=== PATIENT | female | born 1990 | race Caucasian/White ===

== ENCOUNTER 2019-07-14 11:29 | Inpatient (IN) ==
--- NOTE | 2019-07-14 11:57 | Emergency Department Note ---
[facility] [place] Clinical Impression: Shortness of breath Disposition: Still a Patient Condition on Discharge: Fair Referrals: Provider,Referral, [Primary Care Provider] - Time of Disposition: 12:06 Medical Decision Making - Des Inquiry Pt receiving controlled substance: No Des was queried for this patient: No Vital Signs: 07/14/19 11:48 Temperature 98.7 F Temperature Source Oral Pulse Rate [Right Brachial] 138 H Respiratory Rate 36 H Blood Pressure [Right Arm] 135/83 Blood Pressure Mean [Right Arm] 100 Blood Pressure Source [Right Arm] Automatic Cuff Blood Pressure Position [Right Arm] Sitting 02 Sat by Pulse Oximetry 88 L Oxygen Delivery Method Room Air - Reevaluation(s) Time: 12:02 Reevaluation #1: After walking from waiting room to exam room patient become pale, sweaty and breathing rapidly Patient reports "feel like she cant breath" Patient initial SPO2 was 85% and slightly improved to 88% after sitting. Patient reports that she is unable to walk, eat or talk much due to feeling out of breath, Denies COPD Patient to be transferred to ED for further evaluation and treatment, Patient agreed for transfer, called ED spoke with Raquel RN and advised of patient complaints and findings and patient transferred to ED room 7 for further evaluation and treatment Patient transferred to ED room 7 via wheel chair [facility] [place] - General Stated complaint: SOA fever Time Seen by Provider: 07/14/19 11:54 Mode of Arrival: Family Vehicle Source of Information: Patient Limitations: No Limitations Description of Symptoms (Recalled from Triage Doc. by RN): C/O SOB AND COUGH. WAS SEE IN THIS [facility] ON 07/11/19 AND STARTED ON MEDS BUT GETTING WORSE HEENT Symptoms (Recalled from RN notes): Yes Resp Symptoms (Recalled from RN notes): Yes Skin Symptoms (Recalled from RN notes): No MS Symptoms (Recalled from RN notes): No Functional Status (Recalled from RN notes): N/A - History of Present Illness Provider Complaint: Patient states that she was seen on Saturday and dx with bronchitis and started on zpack and steriods and given an inhaler State that she has continued to get worse States that she "feels like she cant breath" States that when she gets up and moves around, talks or does anything she gets sweaty and feels like she cant breath. States that she feels like when she tries to take a deep a breath she starts coughing and her breathing gets worse States that her chest and back feel sore from coughing. States that last night she rolled over and felt like she couldnt breath and this morning she felt worse and feels like she cant get a good breath in so she came back to get checked - Related Data Home Medications Medication Instructions Recorded Confirmed Norethindrone-E.estradiol-Iron 1 tab PO DAILY 07/11/19 07/11/19 [Junel Fe 1 mg-20 Mcg Tablet] Previous Rx's Medication Instructions Recorded Albuterol Sulfate [Albuterol HFA 1 - 2 puffs IH Q4-6H PRN #1 inh 07/11/19 Inhaler] Azithromycin [Zithromax 250mg 250 mg PO DIRECTED #6 tab 07/11/19 tab] predniSONE [Prednisone 20mg 20 mg PO BID #10 tab 07/11/19 Tab] Allergies Allergy/AdvReac Type Severity Reaction Status Date / Time No Known Allergies Allergy Verified 07/11/19 20:43 - Worker's Comp Is this a Worker's Comp case?: No [facility] History - Hepatitis A Screen Drug use history?: No High risk sexual behaviors?: No History of sexually transmitted infection?: No Currently employed?: No Childcare worker?: No Do you have indoor plumbing?: Yes Do you have electricity?: Yes Attestation statement:: This patient has been screened for Hepatitis A risk factors. I have reviewed the patient's past medical history: Yes - Social History Alcohol Intake: never Occupational Status: other ROS Obtained: Yes All systems reviewed & no additional complaints, Yes Systems reviewed as appropriate & no additional complaints - Constitutional Constitutional: Reports fatigue, Reports lethargy - Cardiovascular Cardiovascular: Reports dyspnea, Reports dyspnea on exertion, Reports rapid heart rate - Respiratory Respiratory: Yes cough, Yes dyspnea, Yes dyspnea on exertion, Yes pain on inspiration, Yes pain with cough Comments: Report pain with deep inspiration and pain with cough, reports worsening of dy spnea since Saturday with periods of feeling sweating all over, Physical Exam - General General appearance: alert, other (Patient alert, breathing rapidly, pale and sweaty) - Respiratory Respiratory exam: Present: respiratory distress, other (Patient breathing rapidly, reports feels like she can't catch her breath after walking to exam room) - Cardiovascular Cardiovascular exam: Present: tachycardia - Neurological Exam Neurological exam: Present: alert, oriented X3
--- NOTE | 2019-07-14 12:08 | Emergency Department Note ---
ED Disposition Clinical Impression: Community acquired pneumonia Qualifiers: Laterality: unspecified laterality Qualified Code(s): J18.9 - Pneumonia, unspecified organism Respiratory failure with hypoxia Qualifiers: Chronicity: acute Qualified Code(s): J96.01 - Acute respiratory failure with hypoxia Disposition: Admitted As Inpatient Condition on Discharge: Serious Referrals: Provider,Referral, [Primary Care Provider] - - Critical Care Critical Care Time: Yes Attestation: On 07/14/19, the high probability of a clinically significant, sudden or life threatening deterioration of the following system(s) required my full and direct attention, intervention and personal management. The time I documented below is in addition to time spent performing reported procedures but includes the following listed in this critical care notation. Total Critical Care Time: 30 Vital system(s) involved:: Respiratory Failure My critical care processes included: Assessment & monitoring of V/S, Initial and Re-exams, Data Review/Interpretation, Coordinating Care, Medication Orders and management, Documentation Medical Decision Making - Des Inquiry Pt receiving controlled substance: No Vital Signs: 07/14/19 11:48 07/14/19 12:00 07/14/19 12:33 Temperature 98.7 F 99.6 F Temperature Source Oral Oral Pulse Rate [Right Brachial] 138 H 119 H 120 H Respiratory Rate 36 H 35 H Blood Pressure [Right Arm] 135/83 123/74 132/78 Blood Pressure Mean [Right Arm] 100 90 96 Blood Pressure Source [Right Arm] Automatic Cuff Automatic Cuff Blood Pressure Position [Right Arm] Sitting Sitting 02 Sat by Pulse Oximetry 88 L 85 L 90 L Oxygen Delivery Method Room Air Room Air Nasal Cannula Oxygen Flow Rate (LPM) 2 - Lab Data Lab Results 07/14/19 12:09: WBC 5.1, RBC 4.87, Hgb 13.5, Hct 41.6, MCV 85.5, MCH 27.7, MCHC 32.4, RDW 13.8, Plt Count 286, MPV 7.8, Neut % (Auto) 80.9 H, Lymph % (Auto) 14.6, [place] % (Auto) 4.2, Eos % (Auto) 0.1, Baso % (Auto) 0.2, Neut # (Auto) 4.1, Lymph # (Auto) 0.8, [place] # (Auto) 0.2, Eos # (Auto) 0.0, Baso # (Auto) 0.0 07/14/19 12:09: Sodium 138, Potassium 4.3, Chloride 106, Carbon Dioxide 22, Anion Gap 14.3, BUN 14, Creatinine 0.60, Estimated Creat Clear 251, Estimated GFR 120, Est GFR ( Amer) 145, Glucose 135 H, Calcium 9.0, Total Bilirubin 0.4, AST 39 H, ALT 26, Alkaline Phosphatase 96, Troponin I < 0.01, NT-Pro-B Natriuret Pep 19.9, Total Protein 8.8 H, Albumin 4.5, Globulin 4.3 H, Albumin/Globulin Ratio 1.0 L 07/14/19 12:09: Lactate 1.0 07/14/19 12:13: Specimen Source R radial, O2 % Room air, ABG pH 7.45, ABG pCO2 30.3 L, ABG pO2 56.1 L, ABG HCO3 20.4 L, ABG Total CO2 21.3 L, ABG O2 Saturation 90, ABG Base Excess -3.7 L, Sahil Test Acceptable Result diagrams: 07/14/19 12:09 07/14/19 12:09 Orders (Tests/Meds): ED MEDICATIONS Generic Name Dose Route Start Last Admin Trade Name Freq PRN Reason Stop Dose Admin Ceftriaxone Sodium 1 gm/ 50 mls @ 100 mls/hr 07/14/19 12:45 07/14/19 12:58 Sodium Chloride IV 07/28/19 12:44 100 mls/hr Q24H JEY Administration Protocol Azithromycin 500 mg/ Sodium 250 mls @ 250 mls/hr 07/14/19 12:45 Chloride IV 07/28/19 12:44 Q24H JEY Protocol Discontinued Medications Generic Name Dose Route Start Last Admin Trade Name Freq PRN Reason Stop Dose Admin Albuterol/Ipratropium 3 ml 07/14/19 12:20 07/14/19 12:20 Duoneb 3ml Neb IH 07/14/19 12:21 3 ml ONCE ONE Administration ORDERS Category Date Time Status Serum [HCG Qualitative, Serum] Stat Lab 07/14/19 12:09 Received Troponin I Q3H Lab 07/14/19 15:15 Ordered Troponin I Q3H Lab 07/14/19 18:15 Ordered Upper Respiratory Panel, PCR Stat Lab 07/14/19 12:20 Received Blood Culture Stat Micro 07/14/19 12:09 Received - Radiology Data #1 Image(s): Chest Image Reviewed: Yes I reviewed the patient's radiology image, Yes I discussed the image results w/the radiologist Low lung volumes. Bilateral lower lobe pneumonia. - Physician Consults Physician Consulted: Bonifacio Time: 13:00 Reason -: Admission Comment/Response: Agrees to admit the patient to the hospital. We discussed the patient's clinical information, including history, exam, laboratory and radiology results and ED course. Per hospital procedure, I will write temporary bridge inpatient orders on the patient. Specific orders requested by the admitting physician: Rocephin and Levaquin, since she failed outpatient Zithromax. General Adult HPI - General Stated complaint: SOA fever Time Seen by Provider: 07/14/19 11:54 Mode of Arrival: Family Vehicle Source of Information: Patient Limitations: No Limitations Description of Symptoms (Recalled from ER Triage Doc. by RN): C/O SOB AND COUGH. WAS SEE IN THIS [facility] ON 07/11/19 AND STARTED ON MEDS BUT GETTING WORSE - History of Present Illness HPI narrative: States she began to get ill on Saturday 1 week ago. She had body aches and chills, cough. Low-grade fever. States that she thought she had the flu. Seen at the urgent treatment center here on 07/11/2019 and diagnosed with bronchitis. Started on Z-Ryan, prednisone, inhaler at that time. [place] some improvement and was able to go back to work, but now is worsening again with shortness of breath, dyspnea on exertion. Has coughing paroxysms. Coughed up clear phlegm this morning, cough is largely nonproductive. Has chest pain only when she coughs. Diarrhea, but no vomiting. Nausea this morning. Has a history of childhood asthma, but no problems since third grade. Non- smoker. - Related Data Home Medications Medication Instructions Recorded Confirmed Norethindrone-E.estradiol-Iron 1 tab PO DAILY 07/11/19 07/14/19 [Junel Fe 1 mg-20 Mcg Tablet] Azithromycin [Zithromax 250mg 250 mg PO DIRECTED 07/14/19 07/14/19 tab] predniSONE [Prednisone 20mg 20 mg PO BID 07/14/19 07/14/19 Tab] Previous Rx's Medication Instructions Recorded Albuterol Sulfate [Albuterol HFA 1 - 2 puffs IH Q4-6H PRN #1 inh 07/11/19 Inhaler] Allergies Allergy/AdvReac Type Severity Reaction Status Date / Time No Known Allergies Allergy Verified 07/11/19 20:43 [facility] History - Hepatitis A Screen Drug use history?: No High risk sexual behaviors?: No History of sexually transmitted infection?: No Currently employed?: No Childcare worker?: No Do you have indoor plumbing?: Yes Do you have electricity?: Yes Attestation statement:: This patient has been screened for Hepatitis A risk factors. I have reviewed the patient's past medical history: Yes - Social History Alcohol Intake: never Occupational Status: other ROS Obtained: Yes All systems reviewed & no additional complaints - Constitutional Constitutional: Reports body ache, Reports chills, Reports fever(s) - Respiratory Respiratory: Yes cough, Yes dyspnea, Yes dyspnea on exertion, Yes pain with cough - Gastrointestinal Gastrointestingal: Reports: diarrhea, nausea. Denies: abdominal pain, vomiting Physical Exam - General General appearance: alert Comment: Tachypneic, mildly labored respirations - Head Head exam: atraumatic, normocephalic - Eye Eye exam: Present: normal appearance, EOMI - ENT ENT exam: Present: mucous membranes moist - Neck Neck exam: Present: normal inspection, trachea midline - Chest Chest inspection: Present: normal inspection, symmetric chest wall rise - Respiratory Respiratory exam: Present: other (Crackles bilaterally, decreased breath sounds right base). Absent: wheezes - Cardiovascular Cardiovascular exam: Present: normal rhythm, tachycardia, normal heart sounds - Abdominal Exam Abdominal exam: Present: soft, normal bowel sounds. Absent: distention, tenderness - Extremities Exam Extremities exam: Present: normal inspection - Neurological Exam Neurological exam: Present: alert, oriented X3 - Psychiatric Psychiatric exam: Present: normal affect, normal mood - Skin Skin exam: Present: warm, dry
[2019-07-14 12:19] LABS: ABG Base Excess -3.7 mmol/L (-2.4-2.3); ABG HCO3 20.4 mmhg (22.0-26.0); ABG Oxygen Saturation 90 % (90-100); ABG PCO2 30.3 mmhg (35.0-45.0); ABG PH 7.45 mmol/L (7.35-7.45); ABG PO2 56.1 mmhg (80-100); ABG TCO2 21.3 mmhg (23-27)
[2019-07-14 12:20] LABS: Allen's Test ACCEPTABLE; Oxygen ROOM AIR %
[2019-07-14 12:21] LABS: Basophils % 0.2 % (0.1-2.0); Eosinophils % 0.1 % (0.1-12.0); Hematocrit 41.6 % (37.0-47.0); Hemoglobin 13.5 g/dL (12.2-16.2); Lymphocytes # 0.8 K/mm3 (0.7-4.5); Lymphocytes % 14.6 % (10-50); Mean Corpuscular HGB Conc 32.4 g/dL (31.8-35.4); Mean Corpuscular Volume 85.5 fl (81-99); Mean Platelet Volume 7.8 fl (7.4-10.4); Monocytes # 0.2 K/mm3 (0.1-1.0); Monocytes % 4.2 % (1.7-9.3); Neutrophils # 4.1 K/mm3 (1.8-7.8); Neutrophils % 80.9 % (37.0-80.0); Platelet Count 286 K/mm3 (142-424); Red Blood Count 4.87 M/mm3 (4.20-5.40); Red Cell Distribution Width 13.8 % (11.5-17.5); White Blood Count 5.1 K/mm3 (4.8-10.8)
[2019-07-14 12:23] LABS: Coronavirus 229E Not Detected (NotDetected); Coronavirus NL63 Not Detected (NotDetected); Coronavirus OC43 Not Detected (NotDetected); Coronovirus HKU1,PCR Not Detected (NotDetected)
[2019-07-14 12:32] LABS: Alanine Aminotransferase 26 U/L (12-78); Albumin Level 4.5 g/dl (3.5-5.0); Alkaline Phosphatase 96 U/L (38-126); Anion Gap 14.3 mEq/L (5-15); Aspartate Amino Transferase 39 U/L (14-36); Bilirubin,Total 0.4 mg/dl (0.2-1.3); Blood Urea Nitrogen 14 mg/dl (7-17); Carbon Dioxide 22 mmol/L (22.0-30.0); Chloride 106 mmol/L (98-107); Globulin 4.3 g/dL (1.3-3.2); Glucose 135 mg/dl (74-100); Sodium 138 mmol/L (136-145); Total Protein,Serum 8.8 g/dl (6.3-8.2)
--- NOTE | 2019-07-14 14:14 | Pharmacy Consult Notes ---
[facility] Pharmacy VTE Monitoring - Patient Demographics Admission date: 07/14/19 Report Date: 07/14/19 Time: 14:14 Allergies/Adverse Reactions: Patient Allergies No Known Allergies Allergy (Verified 07/11/19 20:43) Height: 1.7 m Weight: 113 kg Patient Problems: Current Active Problems Community acquired pneumonia (Acute) Respiratory failure with hypoxia (Acute) - VTE Risk Labs: VTE Related Lab Results Hgb 13.5 g/dL (12.2-16.2) 07/14/19 12:09 Hct 41.6 % (37.0-47.0) 07/14/19 12:09 Plt Count 286 K/mm3 (142-424) 07/14/19 12:09 BUN 14 mg/dl (7-17) 07/14/19 12:09 Creatinine 0.60 mg/dl (0.52-1.04) 07/14/19 12:09 Estimated Creat Clear 251 mL/min (50-200) 07/14/19 12:09 - Prophylaxis VTE Prophylaxis Ordered?: Yes Types of VTE Prophylaxis: TEDS Knee High Location of Applied Device: Bilateral Lower Extremeties
--- NOTE | 2019-07-14 17:37 | History & Physical Report ---
*Admission Date: 07/14/19 <AinsleyDavida Kate 07/14/19 18:02> *Chief complaint: Shortness of breath <Davida Schmitz 07/14/19 18:02> *History of present illness: Lm is a 28-year-old female with a history of childhood asthma who became sick last week with flulike symptoms To include body aches and chills, cough as well as low-grade fever. At this time she thought she had the flu. She presented to urgent treatment center initially on 07/11/2019 and was treated for bronchitis with Zithromax, prednisone, and inhaler. She got some improvement and was able to go back to work but then again began with shortness of breath and increasing nonproductive cough. So described chest pain with deep inspiration and with the coughing. She developed diarrhea but had no vomiting. She again presented to urgent treatment center and was sent to the ER for evaluation. CTA of the lungs revealed bilateral pneumonia but no PE. Laboratory data: Respiratory panel was negative; white blood cell count was 5100; blood chemistries showed normal electrolytes and renal function. Troponin I was negative; lactic acid was at 1. She was given an albuterol neb treatment. ABG showed a pH of 7.45, PCO2 of 30.3, bicarb of 20.4 and a PO2 of 56.1. She was then admitted for further evaluation and treatment with Levaquin and Zithromax along with neb treatments. At the time of this exam patient is dyspneic with talking. She continues to have chest pain with deep inspiration. O2 sats are in the 90s on oxygen at 3 L/min. <Davida Schmitz 07/14/19 18:02> [facility] History Medical History: Denies:: Asthma, Chronic Obstructive Pulmonary Disease (COPD), Coronary Artery Disease, Diabetes Mellitus Type 2, Gastroesophageal Reflux Disease(GERD), Home Oxygen, Hypertension, Peripheral Vascular Disease <Davida Schmitz 07/14/19 18:02> *Have you ever received a pneumonia vaccine?: No <Davida Schmitz 07/14/19 18:02> *Have you received a flu vaccine this season?: No <Davida Schmitz 07/14/19 18:02> Other Medical History: Denies: Anemia, Arthritis <Davida Schmitz 20 18:02> Other Surgeries: Yes: No Previous Surgery <AinsleyDavida - 07/14/19 18:02> - *Social History Educational Level: Completed High School <Davida Schmitz 07/14/19 18:02> Smoking Status: Never smoker <SchmitzDavida escobar 07/14/19 18:02> Alcohol Intake: never <Davida Schmitz 07/14/19 18:02> *Occupational Status:: employed <Davida Schmitz 07/14/19 18:02> Housing: house <SchmitzDavida escobar 07/14/19 18:02> Household Members: spouse <Davida Schmitz 07/14/19 18:02> *Travel in the last 8 weeks: None <Davida Schmitz 07/14/19 18:02> Family Hx:: Bleeding Disorder, Diabetes, Hyperlipidemia, Hypertension, Mental illness, Other <Davida Schmitz 07/14/19 18:02> Comment: Oral control pills <Davida Schmitz 07/14/19 18:02> Review of Systems - Constitutional Reports fatigue, Reports fever(s), Reports lack of energy <Davida Schmitz 07/14/19 18:02> - Eyes Denies change in vision <Davida Schmitz 07/14/19 18:02> - ENT Denies difficulty swallowing, Denies ear pain, Denies nasal congestion, Denies sore throat <Davida Schmitz 07/14/19 18:02> - *Cardiovascular Reports chest pain (On inspiration), Reports shortness of breath <Davida Schmitz 07/14/19 18:02> - *Respiratory Reports cough, Reports shortness of breath, Denies coughing up blood <Davida Schmitz 07/14/19 18:02> - *Gastrointestinal Reports heartburn, Reports loose stools, Denies abdominal pain, Denies change in bowel habits, Denies constipation, Denies heartburn, Denies vomiting blood <Davida Schmitz 07/14/19 18:02> - *Genitourinary Denies abnormal periods, Denies difficulty urinating, Denies blood in urine <Davida Schmitz 07/14/19 18:02> - *Musculoskeletal Reports muscle weakness (Since she has been sick) <Davida Schmitz - 07/14/19 18:02> - *Neurologic Reports headache(s), Denies confusion, Denies dizziness, Denies lack of coordination, Denies seizure-like activity <Davida Schmitz - 07/14/19 18:02> Meds Home Medications Medication Instructions Recorded Confirmed Type Norethindrone-E.estradiol-Iron 1 tab PO DAILY 07/11/19 07/14/19 History [Junel Fe 1 mg-20 Mcg Tablet] Azithromycin [Zithromax 250mg 250 mg PO DIRECTED 07/14/19 07/14/19 History tab] predniSONE [Prednisone 20mg 20 mg PO BID 07/14/19 07/14/19 History Tab] <Chad Valdovinos - 07/14/19 18:35> Allergies Allergy/AdvReac Type Severity Reaction Status Date / Time No Known Allergies Allergy Verified 07/11/19 20:43 <Chad Valdovinos - 07/14/19 18:35> Exam Vital signs and Labs for Last 24 Hours: Temp Pulse Resp BP Pulse Ox 99.7 F H 115 H 48 H 125/80 90 L 07/14/19 17:00 07/14/19 17:00 07/14/19 17:00 07/14/19 17:00 07/14/19 17:00 Laboratory Results - last 24 hr 07/14/19 12:09: WBC 5.1, RBC 4.87, Hgb 13.5, Hct 41.6, MCV 85.5, MCH 27.7, MCHC 32.4, RDW 13.8, Plt Count 286, MPV 7.8, Neut % (Auto) 80.9 H, Lymph % (Auto) 14.6, [place] % (Auto) 4.2, Eos % (Auto) 0.1, Baso % (Auto) 0.2, Neut # (Auto) 4.1, Lymph # (Auto) 0.8, [place] # (Auto) 0.2, Eos # (Auto) 0.0, Baso # (Auto) 0.0 07/14/19 12:09: Sodium 138, Potassium 4.3, Chloride 106, Carbon Dioxide 22, Anion Gap 14.3, BUN 14, Creatinine 0.60, Estimated Creat Clear 251, Estimated GFR 120, Est GFR ( Amer) 145, Glucose 135 H, Calcium 9.0, Total Bilirubin 0.4, AST 39 H, ALT 26, Alkaline Phosphatase 96, Troponin I < 0.01, NT-Pro-B Natriuret Pep 19.9, Total Protein 8.8 H, Albumin 4.5, Globulin 4.3 H, Albumin/Globulin Ratio 1.0 L 07/14/19 12:09: Lactate 1.0 07/14/19 12:09: Serum HCG, Qual Negative 07/14/19 12:09: Mycoplasma pneumon IgM Non-reactive 07/14/19 12:13: Specimen Source R radial, O2 % Room air, ABG pH 7.45, ABG pCO2 30.3 L, ABG pO2 56.1 L, ABG HCO3 20.4 L, ABG Total CO2 21.3 L, ABG O2 Saturation 90, ABG Base Excess -3.7 L, Sahil Test Acceptable 07/14/19 12:20: Chlamy pneumoniae PCR Not detected, Adenovirus (PCR) Not detected, B. pertussis DNA (PCR) Not detected, Coronavirus OC43 (PCR) Not detected, Coronavirus HKU1 (PCR) Not detected, Coronavirus 229E (PCR) Not detected, Coronavirus NL63 (PCR) Not detected, Human Metapneumovir PCR Not detected, Influenza A (H1) PCR Not detected, Influ A (H1N1/09) PCR Not detected, Influenza A (H3) PCR Not detected, Influenza Type A (PCR) Not detected, Influenza Type B (PCR) Not detected, M. pneumoniae (PCR) Not detected, Parainfluenza 1 (PCR) Not detected, Parainfluenza 2 (PCR) Not detected, Parainfluenza 3 (PCR) Not detected, Parainfluenza 4 (PCR) Not detected, RSV (PCR) Not detected, Entero/Rhino (PCR) Not detected <Chad Valdovinos - 07/14/19 18:35> Temp Pulse Resp BP Pulse Ox 99.6 F 138 H 48 H 138/78 91 L 07/14/19 16:00 07/14/19 16:00 07/14/19 16:00 07/14/19 16:00 07/14/19 16:00 Laboratory Results - last 24 hr 07/14/19 12:09: WBC 5.1, RBC 4.87, Hgb 13.5, Hct 41.6, MCV 85.5, MCH 27.7, MCHC 32.4, RDW 13.8, Plt Count 286, MPV 7.8, Neut % (Auto) 80.9 H, Lymph % (Auto) 14.6, [place] % (Auto) 4.2, Eos % (Auto) 0.1, Baso % (Auto) 0.2, Neut # (Auto) 4.1, Lymph # (Auto) 0.8, [place] # (Auto) 0.2, Eos # (Auto) 0.0, Baso # (Auto) 0.0 07/14/19 12:09: Sodium 138, Potassium 4.3, Chloride 106, Carbon Dioxide 22, Anion Gap 14.3, BUN 14, Creatinine 0.60, Estimated Creat Clear 251, Estimated GFR 120, Est GFR ( Amer) 145, Glucose 135 H, Calcium 9.0, Total Bilirubin 0.4, AST 39 H, ALT 26, Alkaline Phosphatase 96, Troponin I < 0.01, NT-Pro-B Natriuret Pep 19.9, Total Protein 8.8 H, Albumin 4.5, Globulin 4.3 H, Albumin/Globulin Ratio 1.0 L 07/14/19 12:09: Lactate 1.0 07/14/19 12:09: Serum HCG, Qual Negative 07/14/19 12:13: Specimen Source R radial, O2 % Room air, ABG pH 7.45, ABG pCO2 30.3 L, ABG pO2 56.1 L, ABG HCO3 20.4 L, ABG Total CO2 21.3 L, ABG O2 Saturation 90, ABG Base Excess -3.7 L, Sahil Test Acceptable 07/14/19 12:20: Chlamy pneumoniae PCR Not detected, Adenovirus (PCR) Not detected, B. pertussis DNA (PCR) Not detected, Coronavirus OC43 (PCR) Not detected, Coronavirus HKU1 (PCR) Not detected, Coronavirus 229E (PCR) Not detected, Coronavirus NL63 (PCR) Not detected, Human Metapneumovir PCR Not detected, Influenza A (H1) PCR Not detected, Influ A (H1N1/09) PCR Not detected, Influenza A (H3) PCR Not detected, Influenza Type A (PCR) Not detected, Influenza Type B (PCR) Not detected, M. pneumoniae (PCR) Not detected, Parainfluenza 1 (PCR) Not detected, Parainfluenza 2 (PCR) Not detected, Pa rainfluenza 3 (PCR) Not detected, Parainfluenza 4 (PCR) Not detected, RSV (PCR) Not detected, Entero/Rhino (PCR) Not detected <Davida Schmitz - 07/14/19 18:02> I & O for Last 24 hours: Intake & Output 07/11/19 07/12/19 07/13/19 07/14/19 23:59 23:59 23:59 23:59 Intake Total 1040 / 1040 Balance 1040 / 1040 Weight 244 lb <Chad Valdovinos - 07/14/19 18:35> Intake & Output 07/12/19 07/13/19 07/14/19 07/15/19 11:59 11:59 11:59 11:59 Intake Total 560 / 560 Balance 560 / 560 Weight 250 lb 244 lb <Davida Schmitz - 07/14/19 18:02> Radiology Reports for the Last 24 Hours: 07/14/2019 chest x-ray IMPRESSION: Low lung volumes with bibasilar airspace disease 07/14/2019 CT of the lungs IMPRESSION: The low lung volumes with bilateral lower lobe consolidation/volume loss with atelectatic changes in the mid lower lung zones with scattered ground-glass opacities in the upper lobes mostly central consistent with bilateral pneumonia with lung volume loss/atelectasis. <Davida Schmitz - 07/14/19 18:02> - Constitutional Comments: Dyspneic with talking <Davida Schmitz - 07/14/19 18:02> - *Routine HEENT Exam Head: Present: normocephalic, atraumatic <Davida Schmitz 07/14/19 18:02> Eye: Present: PERRL. Absent: conjunctival icterus, scleral injection <Davida Schmitz 07/14/19 18:02> ENT: Present: mucous membranes moist, oropharynx clear <Davida Schmitz 07/14/19 18:02> - *Routine Neck Exam Present: supple. Absent: carotid bruit, lymphadenopathy, thyromegaly <Davida Schmitz 07/14/19 18:02> - *Routine Respiratory Exam Comments: Poor inspiratory effort with diminished breath sounds in the bases. <Davida Schmitz - 07/14/19 18:02> - *Routine Cardiovascular Exam Present: RRR <Davida Schmitz 07/14/19 18:02> - *Routine Abdominal Exam Present: soft, normoactive bowel sounds, obese. Absent: tenderness, distended <Davida Schmitz - 07/14/19 18:02> - *Routine Extremities Exam Absent: edema, calf tenderness <Davida Schmitz - 07/14/19 18:02> - *Routine Neurological Exam Present: alert, oriented X3 <Davida Schmitz 07/14/19 18:02> Assessment and Plan (1) Community acquired pneumonia Current visit: Yes Status: Acute Qualifiers: Qualified Code(s): J18.9 - Pneumonia, unspecified organism Category: Medical Code(s): J18.9 - Pneumonia, unspecified organism (2) Bilateral pneumonia Current visit: Yes Status: Acute Qualifiers: Pneumonia type: due to unspecified organism Lung location: lower lobe of lung Qualified Code(s): J18.9 - Pneumonia, unspecified organism Category: Medical Code(s): J18.9 - Pneumonia, unspecified organism (3) Respiratory failure with hypoxia Current visit: Yes Status: Acute Qualifiers: Chronicity: acute Qualified Code(s): J96.01 - Acute respiratory failure with hypoxia Category: Medical Code(s): J96.91 - Respiratory failure, unspecified with hypoxia (4) Obesity Current visit: Yes Status: Acute Category: Medical Code(s): E66.9 - Obesity, unspecified <Chad Valdovinos - 07/14/19 18:35> (1) Obesity Current visit: Yes Status: Acute Category: Medical Code(s): E66.9 - Obesity, unspecified (2) Community acquired pneumonia Current visit: Yes Status: Acute Qualifiers: Laterality: unspecified laterality Qualified Code(s): J18.9 - Pneumonia, unspecified organism Category: Medical Code(s): J18.9 - Pneumonia, unspecified organism (3) Respiratory failure with hypoxia Current visit: Yes Status: Acute Qualifiers: Chronicity: acute Qualified Code(s): J96.01 - Acute respiratory failure with hypoxia Category: Medical Code(s): J96.91 - Respiratory failure, unspecified with hypoxia <Davida Shcmitz - 07/14/19 17:34> - Assessment and plan all Dx Assessment and Plan for all problems:: Saw patient, agree with above note. Spoke to MD office manager receptionist with [facility] department. They do not recommend any testing for COVID-19 in this patient. Continue current antibiotics and supportive care for pneumonia. <Chad Valdovinos - 07/14/19 18:35> Failed treatment with Zithromax, prednisone, and inhaler. We will continue with current antibiotics of Levaquin and Rocephin. She will receive DuoNeb treatments as well. <Davida Schmitz - 07/14/19 18:02>
[2019-07-15 07:06] LABS: ABG Base Excess -6.9 mmol/L (-2.4-2.3); ABG HCO3 17.9 mmhg (22.0-26.0); ABG Oxygen Saturation 91 % (90-100); ABG PCO2 29.6 mmhg (35.0-45.0); ABG PO2 63.7 mmhg (80-100); ABG TCO2 18.8 mmhg (23-27)
[2019-07-15 07:09] LABS: Oxygen 100% %
[2019-07-15 07:10] LABS: Allen's Test Acceptable
--- NOTE | 2019-07-15 08:48 | Progress Note ---
<Patti Noble - Last Filed: 07/15/19 08:44> Internal Medicine - PN: Subj *Date: 07/15/19 *Time: 08:44 Interval history: Patient is not feeling well this morning. Throughout the night, her sats dropped and she became more short of breath and had to be placed on a venti at 50%. This morning she is now on a nonrebreather and her sats are in the lower 90s. She states she has pain in the middle of her chest with any deep breathing. She still feels very short of breath. Exam Vital signs and Labs for Last 24 Hours: Temp Pulse Resp BP Pulse Ox 100.2 F H 109 H 20 118/68 94 L 07/15/19 06:00 07/15/19 06:17 07/15/19 04:00 07/15/19 04:00 07/15/19 06:17 Laboratory Results - last 24 hr 07/14/19 12:09: WBC 5.1, RBC 4.87, Hgb 13.5, Hct 41.6, MCV 85.5, MCH 27.7, MCHC 32.4, RDW 13.8, Plt Count 286, MPV 7.8, Neut % (Auto) 80.9 H, Lymph % (Auto) 14.6, [place] % (Auto) 4.2, Eos % (Auto) 0.1, Baso % (Auto) 0.2, Neut # (Auto) 4.1, Lymph # (Auto) 0.8, [place] # (Auto) 0.2, Eos # (Auto) 0.0, Baso # (Auto) 0.0 07/14/19 12:09: Sodium 138, Potassium 4.3, Chloride 106, Carbon Dioxide 22, Anion Gap 14.3, BUN 14, Creatinine 0.60, Estimated Creat Clear 251, Estimated GFR 120, Est GFR ( Amer) 145, Glucose 135 H, Calcium 9.0, Total Bilirubin 0.4, AST 39 H, ALT 26, Alkaline Phosphatase 96, Troponin I < 0.01, NT-Pro-B Natriuret Pep 19.9, Total Protein 8.8 H, Albumin 4.5, Globulin 4.3 H, Albumin/Globulin Ratio 1.0 L 07/14/19 12:09: Lactate 1.0 07/14/19 12:09: Serum HCG, Qual Negative 07/14/19 12:09: Mycoplasma pneumon IgM Non-reactive 07/14/19 12:13: Specimen Source R radial, O2 % Room air, ABG pH 7.45, ABG pCO2 30.3 L, ABG pO2 56.1 L, ABG HCO3 20.4 L, ABG Total CO2 21.3 L, ABG O2 Saturation 90, ABG Base Excess -3.7 L, Sahil Test Acceptable 07/14/19 12:20: Chlamy pneumoniae PCR Not detected, Adenovirus (PCR) Not detected, B. pertussis DNA (PCR) Not detected, Coronavirus OC43 (PCR) Not detected, Coronavirus HKU1 (PCR) Not detected, Coronavirus 229E (PCR) Not detected, Coronavirus NL63 (PCR) Not detected, Human Metapneumovir PCR Not detected, Influenza A (H1) PCR Not detected, Influ A (H1N1/09) PCR Not detected, Influenza A (H3) PCR Not detected, Influenza Type A (PCR) Not detected, Influenza Type B (PCR) Not detected, M. pneumoniae (PCR) Not detected, Parainfluenza 1 (PCR) Not detected, Parainfluenza 2 (PCR) Not detected, Parainfluenza 3 (PCR) Not detected, Parainfluenza 4 (PCR) Not detected, RSV (PCR) Not detected, Entero/Rhino (PCR) Not detected 07/15/19 06:41: Specimen Source Right radial, O2 % 100%, ABG pH 7.40, ABG pCO2 2 9.6 L, ABG pO2 63.7 L, ABG HCO3 17.9 L, ABG Total CO2 18.8 L, ABG O2 Saturation 91, ABG Base Excess -6.9 L, Sahil Test Acceptable I & O for Last 24 hours: Intake & Output 07/12/19 07/13/19 07/14/19 07/15/19 11:59 11:59 11:59 11:59 Intake Total 1040 / 1040 Output Total 200 / 200 Balance 840 / 840 Weight 250 lb 243 lb 15.769 oz Radiology Reports for the Last 24 Hours: CXR - No change low lung volumes with bibasilar airspace disease - Constitutional Comments: Does not appear to feel well - *Routine Respiratory Exam Present: diminished air movement (poor respiratory effort) - *Routine Cardiovascular Exam Present: RRR - *Routine Abdominal Exam Present: soft, normoactive bowel sounds. Absent: tenderness - *Routine Extremities Exam Absent: cyanosis, clubbing, edema - *Routine Skin Exam Present: warm. Absent: rash - *Routine Neurological Exam Present: alert, oriented X3 Assessment and Plan (1) Community acquired pneumonia Current visit: Yes Status: Acute Qualifiers: Qualified Code(s): J18.9 - Pneumonia, unspecified organism Category: Medical Code(s): J18.9 - Pneumonia, unspecified organism (2) Bilateral pneumonia Current visit: Yes Status: Acute Qualifiers: Pneumonia type: due to unspecified organism Lung location: lower lobe of lung Qualified Code(s): J18.9 - Pneumonia, unspecified organism Category: Medical Code(s): J18.9 - Pneumonia, unspecified organism (3) Respiratory failure with hypoxia Current visit: Yes Status: Acute Qualifiers: Chronicity: acute Qualified Code(s): J96.01 - Acute respiratory failure with hypoxia Category: Medical Code(s): J96.91 - Respiratory failure, unspecified with hypoxia (4) Obesity Current visit: Yes Status: Acute Category: Medical Code(s): E66.9 - Obesity, unspecified - Assessment and plan all Dx Assessment and Plan for all problems:: We will repeat a PCR respiratory panel today. Dr. Valdovinos will try to contact pulmonology to discuss the case with them. <Chad Valdovinos - Last Filed: 07/15/19 08:53> Internal Medicine - PN: Subj *Date: 07/15/19 *Time: 08:52 Exam Vital signs and Labs for Last 24 Hours: Temp Pulse Resp BP Pulse Ox 100.2 F H 109 H 20 118/68 94 L 07/15/19 06:00 07/15/19 06:17 07/15/19 04:00 07/15/19 04:00 07/15/19 06:17 Laboratory Results - last 24 hr 07/14/19 12:09: WBC 5.1, RBC 4.87, Hgb 13.5, Hct 41.6, MCV 85.5, MCH 27.7, MCHC 32.4, RDW 13.8, Plt Count 286, MPV 7.8, Neut % (Auto) 80.9 H, Lymph % (Auto) 14.6, [place] % (Auto) 4.2, Eos % (Auto) 0.1, Baso % (Auto) 0.2, Neut # (Auto) 4.1, Lymph # (Auto) 0.8, [place] # (Auto) 0.2, Eos # (Auto) 0.0, Baso # (Auto) 0.0 07/14/19 12:09: Sodium 138, Potassium 4.3, Chloride 106, Carbon Dioxide 22, Anion Gap 14.3, BUN 14, Creatinine 0.60, Estimated Creat Clear 251, Estimated GFR 120, Est GFR ( Amer) 145, Glucose 135 H, Calcium 9.0, Total Bilirubin 0.4, AST 39 H, ALT 26, Alkaline Phosphatase 96, Troponin I < 0.01, NT-Pro-B Natriuret Pep 19.9, Total Protein 8.8 H, Albumin 4.5, Globulin 4.3 H, Albumin/Globulin Ratio 1.0 L 07/14/19 12:09: Lactate 1.0 07/14/19 12:09: Serum HCG, Qual Negative 07/14/19 12:09: Mycoplasma pneumon IgM Non-reactive 07/14/19 12:13: Specimen Source R radial, O2 % Room air, ABG pH 7.45, ABG pCO2 30.3 L, ABG pO2 56.1 L, ABG HCO3 20.4 L, ABG Total CO2 21.3 L, ABG O2 Saturation 90, ABG Base Excess -3.7 L, Sahil Test Acceptable 07/14/19 12:20: Chlamy pneumoniae PCR Not detected, Adenovirus (PCR) Not detected, B. pertussis DNA (PCR) Not detected, Coronavirus OC43 (PCR) Not detected, Coronavirus HKU1 (PCR) Not detected, Coronavirus 229E (PCR) Not detected, Coronavirus NL63 (PCR) Not detected, Human Metapneumovir PCR Not detected, Influenza A (H1) PCR Not detected, Influ A (H1N1/09) PCR Not detected, Influenza A (H3) PCR Not detected, Influenza Type A (PCR) Not detected, Influenza Type B (PCR) Not detected, M. pneumoniae (PCR) Not detected, Parainfluenza 1 (PCR) Not detected, Parainfluenza 2 (PCR) Not detected, Parainfluenza 3 (PCR) Not detected, Parainfluenza 4 (PCR) Not detected, RSV (PCR) Not detected, Entero/Rhino (PCR) Not detected 07/15/19 06:41: Specimen Source Right radial, O2 % 100%, ABG pH 7.40, ABG pCO2 29.6 L, ABG pO2 63.7 L, ABG HCO3 17.9 L, ABG Total CO2 18.8 L, ABG O2 Saturation 91, ABG Base Excess -6.9 L, Sahil Test Acceptable I & O for Last 24 hours: Intake & Output 07/12/19 07/13/19 07/14/19 07/15/19 23:59 23:59 23:59 23:59 Intake Total 1040 / 1040 Output Total 200 / 200 Balance 840 / 840 Weight 244 lb 243 lb 15.769 oz Assessment and Plan (1) Community acquired pneumonia Current visit: Yes Status: Acute Qualifiers: Qualified Code(s): J18.9 - Pneumonia, unspecified organism Category: Medical Code(s): J18.9 - Pneumonia, unspecified organism (2) Bilateral pneumonia Current visit: Yes Status: Acute Qualifiers: Pneumonia type: due to unspecified organism Lung location: lower lobe of lung Qualified Code(s): J18.9 - Pneumonia, unspecified organism Category: Medical Code(s): J18.9 - Pneumonia, unspecified organism (3) Respiratory failure with hypoxia Current visit: Yes Status: Acute Qualifiers: Chronicity: acute Qualified Code(s): J96.01 - Acute respiratory failure with hypoxia Category: Medical Code(s): J96.91 - Respiratory failure, unspecified with hypoxia (4) Obesity Current visit: Yes Status: Acute Category: Medical Code(s): E66.9 - Obesity, unspecified - Assessment and plan all Dx Assessment and Plan for all problems:: Saw patient, agree with above note. Patient does not appear to be in distress but has been more hypoxic overnight. She is coughing more and just was able to produce some sputum. Will add medication to help with pain upon breathing.
[2019-07-15 11:44] LABS: Coronavirus 229E Not Detected (NotDetected); Coronavirus NL63 Not Detected (NotDetected); Coronavirus OC43 Not Detected (NotDetected); Coronovirus HKU1,PCR Not Detected (NotDetected)
[2019-07-15 17:24] LABS: ABG Base Excess -7.2 mmol/L (-2.4-2.3); ABG HCO3 17.4 mmhg (22.0-26.0); ABG Oxygen Saturation 97 % (90-100); ABG PCO2 27.5 mmhg (35.0-45.0); ABG PH 7.42 mmol/L (7.35-7.45); ABG PO2 98.8 mmhg (80-100); ABG TCO2 18.2 mmhg (23-27)
--- NOTE | 2019-07-15 17:24 | Procedure Note ---
[facility] Procedure Note Procedure Note:: Present at bedside at 1615. Pt appears stable but tachypneic. Assessment performed, hx of childhood asthma, obesity. Plan discussed, education provided. 1625: VSS, preoxygenation via ambu bag, midazolam 6mg, fentanyl 100mcg, 1% lidocaine 50mg, propofol 150mg, anectine 200mg, smooth induction/easy intubation . RSI, gutierrez 2, CL score 1, ETT 7.5 cm placed 21cm at lip, bilateral breath sounds, ETCO2 assessed and present. Atraumatic intubation. VSS, BP 127/62, HR 121, O2sat 100%, RR 22, post intubation. Pt tolerated procedure well. 1632: Rocuronium 50 mg administered.
[2019-07-15 17:25] LABS: Oxygen 50% %; PEEP 7; Tidal Volume 450
[2019-07-15 17:26] LABS: Allen's Test Patient Unable
--- NOTE | 2019-07-15 18:42 | Progress Note ---
Internal Medicine - PN: Subj *Date: 07/15/19 *Time: 18:39 Interval history: Patient intubated this afternoon without difficulty due to increased work of breathing with hypoxic respiratory failure. Exam Vital signs and Labs for Last 24 Hours: Temp Pulse Resp BP Pulse Ox 103.1 F H 150 H 40 H 148/90 H 93 L 07/15/19 17:29 07/15/19 16:04 07/15/19 12:00 07/15/19 17:29 07/15/19 14:07 Laboratory Results - last 24 hr 07/15/19 06:41: Specimen Source Right radial, O2 % 100%, ABG pH 7.40, ABG pCO2 29.6 L, ABG pO2 63.7 L, ABG HCO3 17.9 L, ABG Total CO2 18.8 L, ABG O2 Saturation 91, ABG Base Excess -6.9 L, Sahil Test Acceptable 07/15/19 07:59: Stl Aeromonas (PCR) Not detected, Stl C. cayetanensis PCR Not detected, Stool Rotavirus (PCR) Not detected, Stl Adenov F 40/41 PCR Not detected, Stool Astrovirus (PCR) Not detected, Stool Campylobacter PCR Not detected, Stl C.difficile Tox PCR Not detected, Stool Cryptosporidium PCR Not detected, Stl E.coli Shiga Tox PCR Not detected, Stool E coli O157 PCR Not detected, Stl Enterotoxigenic E PCR Not detected, Stool EPEC (PCR) Not detected, Stool EAEC (PCR) Not detected, Stl E. histolytica PCR Not detected, Stool Giardia Lamblia PCR Not detected, Stool Salmonella PCR Not detected, Stool Sapovirus (PCR) Not detected, Stl P. shigelloides PCR Not detected, Stl Shigella/EIEC PCR Not detected, St Y.enterocolitica PCR Not detected, Stool Vibrio (PCR) Not detected, Stl Vibrio cholerae PCR Not detected, Stl Norovirus GI/GII PCR Not detected 07/15/19 11:30: Chlamy pneumoniae PCR Not detected, Adenovirus (PCR) Not detected, B. pertussis DNA (PCR) Not detected, Coronavirus OC43 (PCR) Not de tected, Coronavirus HKU1 (PCR) Not detected, Coronavirus 229E (PCR) Not detected, Coronavirus NL63 (PCR) Not detected, Human Metapneumovir PCR Not detected, Influenza A (H1) PCR Not detected, Influ A (H1N1/09) PCR Not detected, Influenza A (H3) PCR Not detected, Influenza Type A (PCR) Not detected, Influenza Type B (PCR) Not detected, M. pneumoniae (PCR) Not detected, Parainfluenza 1 (PCR) Not detected, Parainfluenza 2 (PCR) Not detected, Parainfluenza 3 (PCR) Not detected, Parainfluenza 4 (PCR) Not detected, RSV (PCR) Not detected, Entero/Rhino (PCR) Not detected 07/15/19 17:15: Specimen Source Right radial, O2 % 50%, ABG pH 7.42, ABG pCO2 27.5 L, ABG pO2 98.8, ABG HCO3 17.4 L, ABG Total CO2 18.2 L, ABG O2 Saturation 97, ABG Base Excess -7.2 L, Sahil Test Patient unable, Vent Rate 16, Tidal Volume 450, PEEP 7 I & O for Last 24 hours: Intake & Output 07/12/19 07/13/19 07/14/19 07/15/19 23:59 23:59 23:59 23:59 Intake Total 1040 / 1040 688 / 688 Output Total 200 / 200 700 / 700 Balance 840 / 840 -12 / -12 Weight 244 lb 240 lb 3.803 oz Microbiology Reports for the Last 24 Hours: Microbiology 07/15/19 16:45 Sputum - Expectorated Sputum Gram Stain - Final Assessment and Plan (1) Community acquired pneumonia Current visit: Yes Status: Acute Qualifiers: Qualified Code(s): J18.9 - Pneumonia, unspecified organism Category: Medical Code(s): J18.9 - Pneumonia, unspecified organism (2) Bilateral pneumonia Current visit: Yes Status: Acute Qualifiers: Pneumonia type: due to unspecified organism Lung location: lower lobe of lung Qualified Code(s): J18.9 - Pneumonia, unspecified organism Category: Medical Code(s): J18.9 - Pneumonia, unspecified organism (3) Respiratory failure with hypoxia Current visit: Yes Status: Acute Qualifiers: Chronicity: acute Qualified Code(s): J96.01 - Acute respiratory failure with hypoxia Category: Medical Code(s): J96.91 - Respiratory failure, unspecified with hypoxia (4) Obesity Current visit: Yes Status: Acute Category: Medical Code(s): E66.9 - Obesity, unspecified - Assessment and plan all Dx Assessment and Plan for all problems:: Patient transfered to via air ambulance. Dr. Barrera accepting physician.
--- NOTE | 2019-07-17 08:52 | Electrocardiograph Report ---
APPROVED REPORT Exam: Resting ECG HR:121 bpm ECG Measurements Heart Rate 121 AXES SD 118 P 48 QRSd 88 QRS 22 QT 312 T68 QTc 443 <Conclusion> Sinus tachycardia Otherwise normal ECG Electronically signed by : Rodolfo Beckett, 07/17/2019 08:52:16
--- NOTE | 2019-07-20 09:20 | Discharge Summary ---
General - General Admission date:: 07/14/19 <Chad Valdovinos - 07/20/19 10:44> 07/14/19 <Patti Noble - 07/20/19 09:21> Discharge date: 07/15/19 <Patti Noble - 07/20/19 09:21> HPI HPI: Ms. Amato is a 28-year-old female with a history of childhood asthma who became sick last week with flulike symptoms to include body aches and chills, cough as well as low-grade fever. At this time she thought she had the flu. She presented to urgent treatment center initially on 07/11/2019 and was treated for bronchitis with Zithromax, prednisone, and an inhaler. She got some improvement and was able to go back to work but then again began with shortness of breath and increasing nonproductive cough. She described chest pain with deep inspiration and with the coughing. She developed diarrhea but had no vomiting. She again presented to urgent treatment center and was sent to the ER for evaluation. CTA of the lungs revealed bilateral pneumonia but no PE. Laboratory data: Respiratory panel was negative; white blood cell count was 5100; blood chemistries showed normal electrolytes and renal function. Troponin I was negative; lactic acid was at 1. She was given an albuterol neb treatment. ABG showed a pH of 7.45, PCO2 of 30.3, bicarb of 20.4 and a PO2 of 56.1. She was then admitted for further evaluation and treatment with Levaquin and Zithromax along with neb treatments. At the time of this exam patient is dyspneic with talking. She continues to have chest pain with deep inspiration. O2 sats are in the 90s on oxygen at 3 L/min. <Patti Noble - 07/20/19 09:21> Hospital Course Hospital Course: COVID-19, instead of coving-19 above <Chda Valdovinos - 07/20/19 10:44> The patient was started on Levaquin and Rocephin as well as duo nebs. Dr. Valdovinos did speak with the physician talent acquisition associate with [facility] and they did not recommend testing for coving-19 in this patient but rather supportive care for pneumonia. The patient's respiratory status continued to decline. Throughout the first night of admission, her oxygen saturations dropped and she became more short of breath and had to be placed on a Ventimask at 50%. She then had to be placed on a nonrebreather and her sats were still only in the lower 90s. She continued with midsternal chest pain with any deep breathing and felt very short of breath. Her CBC continued to remain viral. Another PCR respiratory panel was ordered ordered to rule out any other viral illnesses. It was once again negative. Dr. Valdovinos tried to contact pulmonology to discuss the case with them. Her clinical picture was concerning for ARDS. Dr. Valdovinos did speak to Dr. Barrera at who accepted patient in transfer, however there were no beds available. The patient continued to decline and had increased work of breathing and hypoxia. A repeat chest x-ray was ordered showing worsening bilateral lower lobe pneumonia. The patient had to be intubated due to ARDS and she was transferred to via air ambulance for further evaluation and treatment. <Patti Noble - 07/20/19 09:21> Objective Vital signs: Temp Pulse Resp BP Pulse Ox 103.1 F H 120 H 24 101/58 L 98 07/15/19 17:29 07/15/19 18:00 07/15/19 18:00 07/15/19 18:00 07/15/19 18:00 <Chad Valdovinos - 07/20/19 10:44> Temp Pulse Resp BP Pulse Ox 103.1 F H 120 H 24 101/58 L 98 07/15/19 17:29 07/15/19 18:00 07/15/19 18:00 07/15/19 18:00 07/15/19 18:00 <Patti Noble - 07/20/19 09:21> Narrative: - Constitutional Comments: Dyspneic with talking - *Routine HEENT Exam Head: Present: normocephalic, atraumatic Eye: Present: PERRL. Absent: conjunctival icterus, scleral injection ENT: Present: mucous membranes moist, oropharynx clear - *Routine Neck Exam Present: supple. Absent: carotid bruit, lymphadenopathy, thyromegaly - *Routine Respiratory Exam Comments: Poor inspiratory effort with diminished breath sounds in the bases. - *Routine Cardiovascular Exam Present: RRR - *Routine Abdominal Exam Present: soft, normoactive bowel sounds, obese. Absent: tenderness, distended - *Routine Extremities Exam Absent: edema, calf tenderness - *Routine Neurological Exam Present: alert, oriented X3 <Patti Noble 07/20/19 09:21> DS: Diagnosis - Discharge Diagnosis (1) Community acquired pneumonia Status: Acute (2) Bilateral pneumonia Status: Acute (3) Respiratory failure with hypoxia Status: Acute (4) Obesity Status: Acute (5) ARDS (adult respiratory distress syndrome) Status: Acute <Chad Valdovinos 07/20/19 10:44> (1) Community acquired pneumonia Status: Acute (2) Bilateral pneumonia Status: Acute (3) Respiratory failure with hypoxia Status: Acute (4) Obesity Status: Acute (5) ARDS (adult respiratory distress syndrome) Status: Acute <Patti Noble 07/20/19 09:13> Discharge Plan - Patient Discharge Instructions ACTIVITY: Continue current activity <Patti Noble 07/20/19 09:21> DIET: NPO <Patti Noble 07/20/19 09:21> Patient Instructions: DI for Pneumonia -- Adult <Chad Valdovinos 07/20/19 10:44> Forms: Transfer Record <Chad Valdovinos 07/20/19 10:44> - Follow up Plan Follow up with: <Chad Valdovinos 07/20/19 10:44> Disposition: Xfer Short-Term Hosp <Chad Valdovinos 07/20/19 10:44> Prescriptions/Medication Reconciliation: Discontinued Norethindrone-E.estradiol-Iron [Junel Fe 1 mg-20 Mcg Tablet] 1 tab PO DAILY predniSONE [Prednisone 20mg Tab] 20 mg PO BID Azithromycin [Zithromax 250mg tab] 250 mg PO DIRECTED <Chad Valdovinos 07/20/19 10:44> - Problem Reconciliation Problems Reviewed?: Yes <Chad Valdovinos 07/20/19 10:44> Yes <Patti Noble 07/20/19 09:21>
== END 2019-07-15 18:35 | disposition short-term general hospital (02) | DRG 208 ==
LOC: ER 11:29 → UTC 11:29 → 2ND 13:15
PROVIDERS: ADMIT Family Medicine; ATTEND Family Medicine
DX: J18.9 Pneumonia, unspecified organism; J96.01 Acute respiratory failure with hypoxia
CPT/HCPCS: 71010; 71020; 71045; 71046; 71275; 80053; 82803; 83605; 83880; 84484; 84703; 85025; 86738; 87040; 87070; 87205; 87486; 87507; 87581; 87633; 87798; 93005; 94002; 94640; 94760; 96365; 96367; 99284; J0330; J1956; J2405; J2704; Q9967

== ENCOUNTER 2020-06-15 09:25 | Emergency (ER) | payer OTHER, SELFPAY ==
[2020-06-15 09:29] VITALS: BP 142/92; PULSE 88; RESP 16; TEMP 36.7; O2SAT 96; BMI 40.3
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
--- NOTE | 2020-06-15 09:43 | PC.NURSE ---
rad notified of xray order
[2020-06-15 09:48] VITALS: BP 145/92; PULSE 88; RESP 18; O2SAT 97
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
[2020-06-15 10:28] VITALS: BP 143/94; PULSE 89; RESP 18; TEMP 36.7; O2SAT 98
== END 2020-06-15 10:29 | disposition home or self-care (01) ==
PROVIDERS: Emergency Provider Emergency Medicine
DX: S46.912A Strain of unspecified muscle, fascia and tendon at shoulder and upper arm level, left arm, initial encounter (principal); V89.2XXA Person injured in unspecified motor-vehicle accident, traffic, initial encounter
CPT/HCPCS: 73030; 99282

== ENCOUNTER → 2021-06-19 09:51 | Outpatient (CLI) | payer OTHER, SELFPAY ==
[2021-06-20 10:46] LABS: Covid-19 Nasal PCR Sendout Lex POSITIVE
== END ==
PROVIDERS: Visit Provider Nurse Practitioner
DX: U07.1 COVID-19 (principal)
CPT/HCPCS: C9803; U0004; U0005

== ENCOUNTER 2022-03-08 18:55 | Emergency (ER) | payer OTHER, SELFPAY ==
[2022-03-08 19:36] VITALS: BP 160/78; PULSE 92; RESP 18; TEMP 36.7; O2SAT 100; BMI 41.9
[2022-03-08 19:52] LABS: Microscopic, Urine URINE MICROSCOPIC (MICROSCOPIC)
[2022-03-08 19:53] LABS: Appearance,Urine CLEAR (Clear); Bilirubin,Urine Negative (Negative); Blood, Urine TRACE-I (Negative); Color,Urine YELLOW (Yellow); Glucose,Urine (UA) Negative (Negative); Ketones,Urine Negative (Negative); Leukocyte Esterase,Urine Negative (Negative); Nitrate,Urine Negative (Negative); Protein,Urine Negative (Negative)
[2022-03-08 19:54] LABS: Urine Pregnancy, HCG Qual. Positive (Negative)
--- NOTE | 2022-03-08 19:58 | PC.NURSE ---
LABS at to obtain blood for labs
[2022-03-08 20:06] LABS: Bacteria,Urine Trace /lpf; WBC,Urine Occasional #/hpf (0-3)
--- NOTE | 2022-03-08 20:15 | PC.NURSE ---
Radiology paged for home extension agent US
--- NOTE | 2022-03-08 20:24 | HMH.EDUROGF ---
Discharge Plan Disposition Patient Disposition: Home, Self-Care Chief Complaint: Vaginal Bleeding Referrals Follow up/Referrals: Mahamed Ching MD [Primary Care Provider] - See instructions Clinical Impressions Clinical Impression: , Vaginal bleeding before 22 weeks gestation, Rh negative status during Instructions Patient Instructions: DI for Vaginal Bleeding During Discharge ED Provider: Loyd Medina Female Urogenital HPI General Chief complaint: Vaginal Bleeding Stated complaint: BLEEDING VAGITALY 12 WEEKS PREG Time Seen by Provider: 03/08/22 20:05 Mode of Arrival: Ambulatory Source of Information: Patient, Spouse and Medical Record Limitations: No Limitations Description of Symptoms (Recalled from ER Triage Doc. by RN): Pt 12 weeks and reports spotting that started saturday. She says the spotting was intermittent saturday and was unable to get in to OB doctor but the spotting stopped until this morning. Pt states this morning she had a few hours of moderate, constant vaginal bleeding. She does endorse cramps. She denies fevers, N/V/D. She reports miscarriage in jun of this year. History of Present Illness HPI Narrative: pt is 12 weeks with spotting and vag bleeding over the last few days with crampy abd pain Complaint: vaginal bleeding Onset (ago): day(s) Severity: moderate Quality: cramping Duration: intermittent : Yes Associated symptoms: denies other symptoms Related Data Allergies Allergy/AdvReac Type Severity Reaction Status Date / Time No Known Allergies Allergy Verified 07/11/19 20:43 PFSH PFSH Social History Smoking Status: Never smoker alcohol intake: never current occupational status: employed Travel in the last 8 weeks: None household members: spouse housing: house ROS Obtained: Yes All systems reviewed & no additional complaints except as documented Physical Exam General General appearance: alert and obese Head Head exam: normocephalic Eye Eye exam: Present PERRL and EOMI ENT ENT exam: Present mucous membranes moist Neck Neck exam: Present trachea midline Respiratory Respiratory exam: Absent respiratory distress Cardiovascular Cardiovascular exam: Present regular rate Abdominal Exam Abdominal exam: Present soft Extremities Exam Extremities exam: Present full ROM Neurological Exam Neurological exam: Present alert, oriented X3 and CN II-XII intact Psychiatric Psychiatric exam: Present normal affect Skin Skin exam: Absent rash Medical Decision Making Medical Records Medical records reviewed: Yes I reviewed the patient's medical records. Des Inquiry Pt receiving controlled substance: No Vital Signs: 03/08/22 19:36 Temperature 98.1 F Temperature Source Oral Pulse Rate [Right Radial] 92 H Respiratory Rate 18 Blood Pressure [Right Arm] 160/78 H Blood Pressure Mean [Right Arm] 105 Blood Pressure Source [Right Arm] Automatic Cuff Blood Pressure Position [Right Arm] Sitting 02 Sat by Pulse Oximetry 100 Oxygen Delivery Method Room Air Lab Data Lab results reviewed: Yes I reviewed the patient's lab results. Lab Results 03/08/22 19:29: Urine Color Yellow, Urine Appearance Clear, Urine pH 6.0, Ur Specific [place] 1.020, Urine Protein Negative, Urine Glucose (UA) Negative, Urine Ketones Negative, Urine Blood Trace-i, Urine Nitrate Negative, Urine Bilirubin Negative, Urine Urobilinogen 1.0, Ur Leukocyte Esterase Negative, Urine RBC 3-5, Urine WBC Occasional, Ur Squamous Epith Cells 3-5, Urine Bacteria Trace 03/08/22 19:29: Urine HCG, Qual Positive 03/08/22 20:07: Blood Type O Negative Orders (Tests/Meds): ORDERS Category Date Time Status ABO/RH Type Stat BBK 03/08/22 20:07 Completed US OB <= 14 weeks fetus Stat Exams 03/08/22 20:31 Taken Beta HCG, Quant [HCG,Quantitative] Stat Lab 03/08/22 20:07 Received Urinalysis and Microscopic Stat Lab 03/08/22 19:29 Completed Urine Pregn
[2022-03-08 20:31] VITALS: BP 115/76; PULSE 89; O2SAT 98
--- NOTE | 2022-03-08 20:31 | US_ITS ---
PROCEDURE INFORMATION: Exam: US , Transvaginal Exam date and time: 03/08/2022 8:42 PM Age: 31 years old Clinical indication: Lmp or gestational age (in weeks): 12w1d; Antepartum complications; Bleeding; ; Patient HX: Brownish spotting today; Additional info: Vaginal bleeding TECHNIQUE: Imaging protocol: Real-time transvaginal obstetrical ultrasound of the maternal pelvis with image documentation. Transvaginal imaging was used for better evaluation of the fetus, adnexa, and/or cervix. COMPARISON: No relevant prior studies available. FINDINGS: UTERUS: The uterus is gravid with a single intrauterine gestational sac containing pole/yolk sac. Cardiac activity at 161 beats per minute. Small subchorionic-perigestational bleed approximately less than 10% by volume compared to gestational sac size. . COMPOSITE GESTATIONAL AGE/ POLE corresponds to 12 weeks and 3 days with estimated date of confinement of 09/17/2022. . ADNEXA/OVARIES: RIGHT ovary measures approximately 1.5 mL and LEFT ovary 5.9 mL. No adnexal mass or abnormality. No free fluid in the pelvis. IMPRESSION: 1. Single LIVE intrauterine gestation with small subchorionic bleed. 2. Recommend short interval followup in 10-14 days.
[2022-03-08 21:25] VITALS: BP 124/76; PULSE 89; O2SAT 98
[2022-03-08 21:30] VITALS: BP 125/72; PULSE 96; O2SAT 98
[2022-03-08 22:00] VITALS: BP 121/69; PULSE 91; O2SAT 98
--- NOTE | 2022-03-08 22:16 | PC.NURSE ---
Pt updated on POC. No needs voiced at this time.
--- NOTE | 2022-03-08 22:24 | PC.NURSE ---
Called lab for ETA on RhoGam. Est time of 3 min
[2022-03-08 22:53] VITALS: BP 119/79; PULSE 97; RESP 16; TEMP 36.6; O2SAT 100
== END 2022-03-08 22:57 | disposition home or self-care (01) ==
PROVIDERS: Emergency Provider Emergency Medicine; PCP Emergency Medicine
DX: O20.9 Hemorrhage in early pregnancy, unspecified (principal); Z3A.12 12 weeks gestation of pregnancy
CPT/HCPCS: 76801; 81001; 81025; 84702; 86900; 86901; 96372; 99283; J2790